=== PATIENT | female | born 2000 | race Two or more races ===

== ENCOUNTER 2020-12-11 11:23 | Emergency (ER) | payer SELFPAY ==
[~2020-12-11] VITALS: Ht 154.9 cm; Wt 51.0 kg
[2020-12-11 13:05] LABS: CLARITY URINE CLEAR (CLEAR); COLOR URINE DARK YELLOW (YELLOW); KETONES URINE 4+ (NEGATIVE); LEUKOCYTE ESTERASE URINE TRACE (NEGATIVE); NITRITE URINE NEGATIVE (NEGATIVE); OCCULT BLOOD URINE NEGATIVE (NEGATIVE); PH URINE 5.5 (4.5-8.0); PROTEIN URINE 1+ (NEGATIVE); SPECIFIC GRAVITY URINE 1.036 (1.005-1.030)
[2020-12-11 13:15] LABS: BASOPHILS % 0.2 % (0.0-2.0); EOSINOPHILS % 0.2 % (0.0-5.0); HEMOGLOBIN. 12.8 g/dL (12.0-16.0); MEAN CORPUSCULAR HEMOGLOBIN 31.2 pg (28.0-32.0); MEAN CORPUSCULAR VOLUME 90.4 fL (81.0-99.0); MEAN PLATELET VOLUME 7.4 fl (7.4-10.4); MONOCYTES % 5.2 % (2.0-8.0); NEUTROPHILS % 76.4 % (40.0-76.0); PLATELET 261 x1000/uL (130-400); RED CELL DISTRIBUTION WIDTH 13.1 % (11.6-14.6)
[2020-12-11 13:27] LABS: CHLORIDE 105 mEq/L (98-107)
[2020-12-11] MEDS ORDERED: ONDANSETRON 4MG ODT PO ONE (13:45)
[2020-12-11 13:58] LABS: B-HCG QUANTITATIVE 102976 mIU/mL (<3)
[2020-12-11] MEDS ORDERED: METO5TAB86 MT (15:13)
[2020-12-11] MEDS ORDERED: NITR-87 MT (15:13)
[2020-12-11 15:20] VITALS: BP 109/51
== END 2020-12-11 15:22 | disposition home or self-care (01) ==
LOC: ER 11:23
DX: O20.0 Threatened abortion (principal); O23.11 Infections of bladder in pregnancy, first trimester; O21.0 Mild hyperemesis gravidarum; Z3A.01 Less than 8 weeks gestation of pregnancy
CPT/HCPCS: 36415; 76801; 76817; 80053; 81003; 81025; 83690; 84702; 85025; 86850; 86900; 86901; 99284; Q0162

== ENCOUNTER 2021-05-29 15:17 | Inpatient (IN) | payer MEDICARE ==
[~2021-05-29] VITALS: Ht 149.9 cm; Wt 61.2 kg
[~2021-05-29 15:17] MED LIST: METO5TAB86 MT; NITR-87 MT
[2021-05-29] MEDS ORDERED: MISOPROSTOL 100MCG TABLET VG PRN (16:15)
[2021-05-29] MEDS ORDERED: BUTORPHANOL TARTRATE 2 MG/ML VIAL IV PRN (16:15)
[2021-05-29] MEDS ORDERED: METHYLERGONOVINE MALEATE 0.2 MG/ML IM PRN (16:15)
[2021-05-29] MEDS ORDERED: CARBOPROST TROMETHAMINE 250 MCG/ML AMPUL IM PRN (16:15)
[2021-05-29] MEDS ORDERED: BETAMETHASONE ACET/BETAMET 30 MG/5 ML VIAL IM SCH (16:15)
[2021-05-29] MEDS ORDERED: NALOXONE HCL 0.4 MG/ML 1ML VIAL IM PRN (16:15)
[2021-05-29 16:29] LABS: CLARITY URINE CLOUDY (CLEAR); COLOR URINE YELLOW (YELLOW); KETONES URINE 4+ (NEGATIVE); LEUKOCYTE ESTERASE URINE TRACE (NEGATIVE); NITRITE URINE NEGATIVE (NEGATIVE); OCCULT BLOOD URINE 3+ (NEGATIVE); PROTEIN URINE NEGATIVE (NEGATIVE); SPECIFIC GRAVITY URINE 1.019 (1.005-1.030)
[2021-05-29] MEDS ORDERED: DEXT 5%/LR + PITOCIN 20UNITS/L 1,000 ML IV SCH ×2 (16:30→21:45)
[2021-05-29] MEDS ORDERED: LACTATED RINGERS 1,000 ML IV SCH (16:30)
[2021-05-29] MEDS ORDERED: MAGNESIUM 4 G PREMIX 100 ML IV NR (16:30)
[2021-05-29] MEDS ORDERED: PENICILLIN G POTASSIUM 5 MMU in DEXT 5% WATER 100 ML IV NR (16:30)
[2021-05-29] MEDS ORDERED: MAGNESIUM 20 G PREMIX (L & D) 500 ML IV SCH (16:30)
[2021-05-29 16:32] LABS: BASOPHILS % 0.2 % (0.0-2.0); HEMOGLOBIN. 10.8 g/dL (12.0-16.0); LYMPHOCYTES % 8.5 % (20.0-50.0); MEAN CORPUSCULAR HEMOGLOBIN 31.7 pg (28.0-32.0); MEAN PLATELET VOLUME 7.5 fl (7.4-10.4); MONOCYTES % 4.9 % (2.0-8.0); NEUTROPHILS % 86.4 % (40.0-76.0); PLATELET 260 x1000/uL (130-400); RED CELL DISTRIBUTION WIDTH 13.5 % (11.6-14.6)
[2021-05-29 16:51] LABS: CHLORIDE 105 mEq/L (98-107)
[2021-05-29 16:57] LABS: *AMPHETAMINES SCREEN URINE NEGATIVE (NEGATIVE); *BARBITURATES SCREEN URINE NEGATIVE (NEGATIVE); *BENZODIAZEPINES SCREEN URINE NEGATIVE (NEGATIVE); *COCAINE SCREEN URINE NEGATIVE (NEGATIVE)
[2021-05-29 16:58] LABS: CANNABINOID URINE SCREEN NEGATIVE (NEGATIVE); METHADONE URINE SCREEN NEGATIVE (NEGATIVE); OPIATES URINE SCREEN NEGATIVE (NEGATIVE); PHENCYCLIDINE URINE SCREEN NEGATIVE (NEGATIVE)
[2021-05-29 18:09] LABS: HEPATITIS B SURFACE ANTIGEN NEGATIVE
[2021-05-29 20:30] LABS: INR 0.9; PARTIAL THROMBOPLASTIN TIME 28.8 sec (23.4-31.0); PROTHROMBIN TIME 9.5 sec (9.6-11.0)
[2021-05-29] MEDS ORDERED: PENICILLIN G POTASSIUM 2.5 MMU in DEXTROSE 5% WATER 50 ML IV SCH (20:30)
[2021-05-29] MEDS ORDERED: BISACODYL 10MG SUPP PR PRN (21:45)
[2021-05-29] MEDS ORDERED: DIPHENHYDRAMINE 25MG CAPSULE PO PRN (21:45)
[2021-05-29] MEDS ORDERED: HEMORRHOIDAL SUPP PR PRN (21:45)
[2021-05-29] MEDS ORDERED: ACETAMINOPHEN WITH CODEINE 300/30MG TABLET PO PRN (21:45)
[2021-05-29] MEDS ORDERED: IBUPROFEN 400MG TABLET PO PRN (21:45)
[2021-05-29] MEDS ORDERED: GLYCERIN/WITCH HAZEL LEAF MEDICATED PAD TOP PRN (21:45)
[2021-05-29] MEDS ORDERED: RHO(D) IMMUNE GLOBULIN 300 MCG/SYR IM PRN (21:45)
[2021-05-29] MEDS ORDERED: BENZOCAINE/LANOLIN/ALOE VERA SPRAY TOP PRN (21:45)
[2021-05-29 22:42] LABS: BG BASE EXCESS -8.5 mmol/L (-2.0-2.0); BG HCO3 ACT 16.6 mmol/L (22.0-26.0); BG PCO2 33.8 mmHg (35.0-45.0); BG PO2 < 30.3 mmHg (75.0-100.0)
[2021-05-29] MEDS: IBUPROFEN 800MG TABLET PO PRN (22:54)
[2021-05-29 23:10] VITALS: BP 94/56
[2021-05-30 00:30] VITALS: BP 94/58
[2021-05-30 04:00] VITALS: BP 99/63
[2021-05-30] MEDS ORDERED: INFLUENZA VACCINE 05/PF 0.5 ML SYRINGE IM ONE (08:00)
[2021-05-30] MEDS ORDERED: TETANUS, DIPHTHERIA, PERTUSSIS VAC/PF 0.5ML (>10YR OLD) IM ONE (08:00)
[2021-05-30 08:01] LABS: HEMATOCRIT. 27.1 % (36.0-48.0); MEAN CORPUSCULAR HEMOGLOBIN 31.1 pg (28.0-32.0); MEAN CORPUSCULAR VOLUME 93.3 fL (81.0-99.0); PLATELET 248 x1000/uL (130-400); RED BLOOD CELL COUNT 2.91 mill/uL (4.2-5.4); RED CELL DISTRIBUTION WIDTH 13.2 % (11.6-14.6)
[2021-05-30 08:15] VITALS: BP 98/51
[2021-05-30] MEDS: IBUPROFEN 800MG TABLET PO PRN (15:15)
[2021-05-30] MEDS: FERROUS SULFATE 325MG TABLET PO SCH (15:16)
[2021-05-30] MEDS: PRENATAL VIT/FE FUMARATE/FA TABLET PO SCH (15:16)
[2021-05-30 15:48] VITALS: BP 97/55
[2021-05-30 18:25] LABS: PLATELET ESTIMATE NORMAL
[2021-05-30 20:00] VITALS: BP 90/52
[2021-05-30] MEDS ORDERED: DOCUSATE SODIUM 100MG CAPSULE PO SCH (21:00)
[2021-05-30] MEDS: SIMETHICONE 80MG TABLET CHEW PO SCH (22:04)
[2021-05-30] MEDS: MAGNESIUM/ALUMINUM HYDROXIDE/SIMETHICONE 30ML UDC PO SCH (22:04)
[2021-05-31 04:02] VITALS: BP 105/52
[2021-05-31 08:20] VITALS: BP 96/49
[2021-05-31] MEDS: PRENATAL VIT/FE FUMARATE/FA TABLET PO SCH (09:11)
[2021-05-31] MEDS: FERROUS SULFATE 325MG TABLET PO SCH ×2 (09:11→13:21)
[2021-05-31] MEDS: SIMETHICONE 80MG TABLET CHEW PO SCH ×2 (09:11→13:21)
[2021-05-31] MEDS: MAGNESIUM/ALUMINUM HYDROXIDE/SIMETHICONE 30ML UDC PO SCH (09:11)
[2021-05-31 11:53] LABS: BASOPHILS % 0.3 % (0.0-2.0); EOSINOPHILS % 0.2 % (0.0-5.0); HEMATOCRIT. 23.6 % (36.0-48.0); HEMOGLOBIN. 8.1 g/dL (12.0-16.0); LYMPHOCYTES % 13.7 % (20.0-50.0); MEAN CORPUSCULAR HEMOGLOBIN 31.9 pg (28.0-32.0); MEAN PLATELET VOLUME 7.6 fl (7.4-10.4); MONOCYTES % 8.4 % (2.0-8.0); NEUTROPHILS % 77.4 % (40.0-76.0); PLATELET 222 x1000/uL (130-400); RED BLOOD CELL COUNT 2.53 mill/uL (4.2-5.4); RED CELL DISTRIBUTION WIDTH 13.4 % (11.6-14.6)
== END 2021-05-31 15:45 | disposition home or self-care (01) | DRG 560 ==
LOC: 8 EST LDRP 15:17 → OBSVTOIN 15:17 → 8 EST LDRP 15:52 → 8EST 23:10
PROVIDERS: ADMIT Obstetrics & Gynecology; ATTEND Obstetrics & Gynecology
PROC: 10E0XZZ Delivery of Products of Conception, External Approach (ICD-10-PCS; principal; 2021-05-30)
DX: O42.913 Preterm premature rupture of membranes, unspecified as to length of time between rupture and onset of labor, third trimester (principal); Z37.0 Single live birth; O60.14X0 Preterm labor third trimester with preterm delivery third trimester, not applicable or unspecified; Z20.822 Contact with and (suspected) exposure to COVID-19; Z3A.31 31 weeks gestation of pregnancy
CPT/HCPCS: 36415; 36600; 59412; 76805; 76818; 80053; 80305; 81003; 82805; 85025; 86592; 86703; 86762; 86850; 86900; 87340; 87426; 88307; 90686; 90715; 99281; C1893; J0702; J2540; J2590; J3475; J7060; J7120